=== PATIENT | male | born 1985 | race Caucasian/White ===

== ENCOUNTER 2019-02-20 09:19 | Emergency (ER) | payer MEDICAID ==
[2019-02-20 09:30] VITALS: BP 134/87
[2019-02-20] MEDS ORDERED: DOXYCYCLINE 100 MG TABLET PO STA (09:42)
[2019-02-20] MEDS ORDERED: NAPROXEN 250 MG TABLET PO STA (09:42)
[2019-02-20] MEDS ORDERED: HYDROcod/ACETAM 5/325 MG TABLET PO STA (09:42)
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
== END 2019-02-20 09:58 | disposition home or self-care (01) ==
LOC: ED 09:19
DX: M79.661 Pain in right lower leg (principal); M79.89 Other specified soft tissue disorders; F17.200 Nicotine dependence, unspecified, uncomplicated
CPT/HCPCS: 99282; 99284; A9270

== ENCOUNTER 2019-05-28 19:03 | Emergency (ER) | payer MEDICAID ==
[2019-05-28] MEDS ORDERED: IBUPROFEN 800 MG TABLET PO STA (20:53)
[2019-05-28] MEDS ORDERED: DOXYCYCLINE 100 MG TABLET PO STA (20:53)
--- NOTE | 2019-05-28 20:55 | ED Physician Documentation ---
PD HPI LOWER EXT INJURY - Stated complaint Stated Complaint: RT FOOT PX, SWOLLEN MIDDLE TOE, DRAINAGE - Chief complaint Chief Complaint: Wound - History obtained from History obtained from: Patient - History of Present Illness PD HPI LOW EXT INJURY LOCATION: Right (For about 6 months he has had a painful infected lesion on the right second toe. He has had difficulty following up because of homelessness. He denies using any drugs but of note he is very difficult to arouse on initial evaluation.) Review of Systems Constitutional: denies: Fever, Chills GI: denies: Abdominal Pain, Nausea, Vomiting PD PAST MEDICAL HISTORY - Past Medical History Past Medical History: No Cardiovascular: None Respiratory: None Neuro: None Endocrine/Autoimmune: None GI: None : None HEENT: None Psych: None Musculoskeletal: Chronic back pain Derm: None - Past Surgical History Past Surgical History: Yes Ortho: Spine surgery - Present Medications Home Medications: Ambulatory Orders Medication Instructions Recorded Confirmed Doxycycline Hyclate 100 mg PO BID #14 capsule 02/20/19 Hydrocodone/Acetaminophen [[place] 1 each PO Q6H PRN #12 tablet 02/20/19 5-325 Tablet] Naproxen 500 mg PO BID #20 tablet 02/20/19 Doxycycline Hyclate 100 mg PO BID #20 capsule 05/28/19 Ibuprofen [Motrin] 800 mg PO Q8H PRN #30 tablet 05/28/19 - Allergies Allergies/Adverse Reactions: Allergies Allergy/AdvReac Type Severity Reaction Status Date / Time No Known Drug Allergies Allergy Verified 05/28/19 19:18 - Social History Does the pt smoke?: Yes Smoking Status: Current every day smoker Does the pt drink ETOH?: No Does the pt have substance abuse?: Yes Substance Use and Type: Marijuana - Immunizations Immunizations are current?: Yes - POLST Patient has POLST: No PD ED PE NORMAL - Vitals Vital signs reviewed: Yes - General General: Alert and oriented X 3, No acute distress, Other (somnolent) - Extremities Extremities: Other (There is an infected corn on the medial sideOf the right second toe with some tenderness but no obvious cellulitis or limited range) - Neuro Neuro: Alert and oriented X 3, Normal speech Results - Vitals Vitals: Vital Signs - 24 hr 05/28/19 19:19 Temperature 36.3 C L Heart Rate 107 H Respiratory 18 Rate Blood Pressure 125/72 O2 Saturation 98 Oxygen O2 Source Room air Departure - Departure Disposition: Home, Self Care Clinical Impression: Toe infection Condition: Good Record reviewed to determine appropriate education?: Yes Instructions: ED Staph Infec Abx Tx Only Prescriptions: Doxycycline Hyclate 100 mg PO BID #20 capsule Ibuprofen [Motrin] 800 mg PO Q8H PRN #30 tablet PRN Reason: PAIN &/OR FEVER Comments: We are performing a wound culture, the results should be done in 48-72 hours. If antibiotic change is necessary we will call you. Return if worse in the meantime, especially if you develop increased pain, fevers, cannot keep down the medication. Otherwise follow-up with your physician in approximately 2-3 days. 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 One is listed on this form. Call tomorrow for an appointment.
[2019-05-28 21:26] VITALS: BP 145/76
== END 2019-05-28 21:19 | disposition home or self-care (01) ==
LOC: ED 19:03
DX: L08.9 Local infection of the skin and subcutaneous tissue, unspecified (principal); L84 Corns and callosities; F17.200 Nicotine dependence, unspecified, uncomplicated; Z59.0 Homelessness
CPT/HCPCS: 87070; 87077; 87181; 87205; 99283; A9270

== ENCOUNTER 2019-12-13 18:48 | Emergency (ER) | payer MEDICAID ==
--- NOTE | 2019-12-13 20:05 | ED Physician Documentation ---
PD HPI LOWER EXT INJURY - Stated complaint Stated Complaint: LT ANKLE INJ - Chief complaint Chief Complaint: Trauma Ext - History obtained from History obtained from: Patient (He dropped a drill in his left foot and ankle couple of days ago and has moderate persistent pain and difficulty walking. No other injuries. Declines pain medication on initial evaluation.) Review of Systems Constitutional: reports: Reviewed and negative Cardiac: reports: Reviewed and negative Respiratory: reports: Reviewed and negative PD PAST MEDICAL HISTORY - Past Medical History Cardiovascular: None Respiratory: None Neuro: None Endocrine/Autoimmune: None GI: None : None HEENT: None Psych: None Musculoskeletal: Chronic back pain Derm: None - Past Surgical History Past Surgical History: Yes Ortho: Spine surgery - Present Medications Home Medications: Ambulatory Orders Medication Instructions Recorded Confirmed Doxycycline Hyclate 100 mg PO BID #14 capsule 02/20/19 Hydrocodone/Acetaminophen [[place] 1 each PO Q6H PRN #12 tablet 02/20/19 5-325 Tablet] Naproxen 500 mg PO BID #20 tablet 02/20/19 Doxycycline Hyclate 100 mg PO BID #20 capsule 05/28/19 Ibuprofen [Motrin] 800 mg PO Q8H PRN #30 tablet 05/28/19 Cephalexin [Keflex] 500 mg PO Q6H #28 capsule 12/13/19 - Allergies Allergies/Adverse Reactions: Allergies Allergy/AdvReac Type Severity Reaction Status Date / Time No Known Drug Allergies Allergy Verified 12/13/19 19:02 - Social History Does the pt smoke?: Yes Smoking Status: Current every day smoker Does the pt drink ETOH?: No Does the pt have substance abuse?: Yes - Immunizations Immunizations are current?: Yes - POLST Patient has POLST: No PD ED PE NORMAL - Vitals Vital signs reviewed: Yes - General General: Alert and oriented X 3, No acute distress - Extremities Extremities: Other (Left ankle is tender and swollen especially laterally and over the left fifth metatarsal. Normal perfusion.) - Neuro Neuro: Alert and oriented X 3, Normal speech Results - Vitals Vitals: Vital Signs - 24 hr 12/13/19 19:00 Temperature 37.8 C H Heart Rate 88 Respiratory 14 Rate Blood Pressure 148/92 H O2 Saturation 98 Oxygen O2 Source Room air - Rads (name of study) X-rays of the left ankle and left foot Radiology: EMP read contemporaneously (Normal) PD MEDICAL DECISION MAKING - ED course ED course: 34-year-old gentleman dropped a drill on his lateral foot and ankle a couple of days ago and now has redness and swelling there. Actually kind of looks like a cellulitis. X-rays were negative. He declined pain medication. Departure - Departure Disposition: 01 Home, Self Care Clinical Impression: Cellulitis of left foot Contusion of left foot Qualifiers: Encounter type: initial encounter Qualified Code(s): S90.32XA - Contusion of left foot, initial encounter Condition: Good Record reviewed to determine appropriate education?: Yes Instructions: Cellulitis Dc, ED Sprain Foot Prescriptions: Cephalexin [Keflex] 500 mg PO Q6H #28 capsule Comments: Return if you develop a fever, generally worsening. Follow-up with your doctor next week for recheck.
--- NOTE | 2019-12-13 20:40 | XRAY Report ---
Reason: Trauma Procedure Date: 12/13/2019 Accession Number: [id number] / [id number] Procedure: XR - Ankle 3 View LT CPT Code: Final Report FULL RESULT: EXAM: LEFT ANKLE RADIOGRAPHY EXAM DATE: 12/13/2019 07:25 PM. CLINICAL HISTORY: Trauma. Left ankle pain after dropping heavy object on foot yesterday. COMPARISON: None. TECHNIQUE: 3 views. FINDINGS: Bones: Normal. No fractures or bone lesions. Joints: No subluxation. Soft Tissues: Lateral and anterior ankle soft tissue swelling. IMPRESSION: Lateral and anterior ankle soft tissue swelling. No evidence for acute fracture. RADIA
--- NOTE | 2019-12-13 20:43 | XRAY Report ---
Reason: pain foot Procedure Date: 12/13/2019 Accession Number: [id number] / [id number] Procedure: XR - Foot 3 View LT CPT Code: Final Report FULL RESULT: EXAM: LEFT FOOT RADIOGRAPHY EXAM DATE: 12/13/2019 08:34 PM. CLINICAL HISTORY: Pain foot. Left lateral foot pain after dropping heavy object on foot yesterday. COMPARISON: None. TECHNIQUE: 3 views. FINDINGS: Bones: No evidence for acute fracture. Bone island seen at the fourth metatarsal neck. Joints: No subluxation. Soft Tissues: Large dorsal foot soft tissue swelling. IMPRESSION: Large dorsal foot soft tissue swelling. No evidence for acute fracture. RADIA
[2019-12-13] MEDS ORDERED: CEPHALEXIN 250 MG Prepack 8 CAP BOTTLE PO STA (21:05)
[2019-12-13 21:28] VITALS: BP 145/94
== END 2019-12-13 21:28 | disposition home or self-care (01) ==
LOC: ED 18:48
DX: L03.116 Cellulitis of left lower limb (principal); S90.32XA Contusion of left foot, initial encounter; W20.8XXA Other cause of strike by thrown, projected or falling object, initial encounter; F17.200 Nicotine dependence, unspecified, uncomplicated
CPT/HCPCS: 99283

== ENCOUNTER 2020-05-14 14:50 | Emergency (ER) | payer MEDICAID, OTHER ==
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
[2020-05-14] MEDS ORDERED: oxyCODONE 5 MG TABLET PO STA ×2 (15:53→16:45)
[2020-05-14] MEDS ORDERED: KETOROLAC 30 MG/ML VIAL IM STA (15:53)
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
[2020-05-14 17:26] VITALS: BP 118/65
== END 2020-05-14 17:29 | disposition home or self-care (01) ==
LOC: ED 14:50
DX: S06.0X1A Concussion with loss of consciousness of 30 minutes or less, initial encounter (principal); S20.219A Contusion of unspecified front wall of thorax, initial encounter; S00.83XA Contusion of other part of head, initial encounter; Y04.2XXA Assault by strike against or bumped into by another person, initial encounter; Y93.89 Activity, other specified; Y92.149 Unspecified place in prison as the place of occurrence of the external cause; F17.200 Nicotine dependence, unspecified, uncomplicated
CPT/HCPCS: 70450; 71250; 96372; 99284; A9270

== ENCOUNTER 2021-07-02 12:47 | Inpatient (IN) | payer MEDICAID, OTHER ==
[2021-07-02] MEDS ORDERED: VANCOMYCIN INJ 1.5 GM in SODIUM CHLORIDE 0.9% 500 ML IV STA (13:20)
[2021-07-02] MEDS ORDERED: CEFEPIME 2 GM in SODIUM CHLORIDE 0.9% MINIBAG 100 ML IV STA (13:21)
[2021-07-02] MEDS ORDERED: HYDROmorphone 1 MG/ML CARPUJECT IVP STA ×2 (13:40→17:13)
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
[2021-07-02] MEDS ORDERED: HYDROmorphone 1 MG/ML CARPUJECT IM STA (13:49)
[2021-07-02 15:20] LABS: BASOPHILS % (AUTO) 0.3 %; EOSINOPHILS % (AUTO) 0.3 %; HCT - HEMATOCRIT 38.5 % (42.0-52.0); HGB - HEMOGLOBIN 13.4 g/dL (14.0-18.0); LYMPHOCYTES % (AUTO) 5.3 %; MEAN CORPUSCULAR HEMOGLOBIN 29.8 pg (27.0-31.0); MEAN CORPUSCULAR HGB CONC 34.8 g/dL (32.0-36.0); MEAN CORPUSCULAR VOLUME 85.7 fL (80.0-94.0); MEAN PLATELET VOLUME 8.2 fL (7.4-11.4); MONOCYTES % (AUTO) 11.6 %; NEUTROPHILS % (AUTO) 81.9 %; PLT - PLATELET COUNT 196 10^3/uL (130-450); RED BLOOD COUNT 4.49 10^6/uL (4.70-6.10); RED CELL DISTRIBUTION WIDTH 12.4 % (12.0-15.0); WHITE BLOOD COUNT 18.8 x10^3/uL (4.8-10.8)
[2021-07-02 15:28] LABS: ABNORMAL LYMPHS % (MANUAL) 0 %
--- NOTE | 2021-07-02 15:51 | XRAY Report ---
PROCEDURE: Chest for Line Placement INDICATIONS: central line R IJ TECHNIQUE: One view of the chest was acquired. COMPARISON: Reference is made to the chest CT dated May 14, 2020 FINDINGS: FINDINGS: SUPPORT DEVICES: A right IJ central venous catheter is seen with tip overlying the cavoatrial region. LUNGS/PLEURA: No focal consolidation, pleural effusion or space-occupying pneumothorax. MEDIASTINUM: The cardiomediastinal silhouette is within normal limits. BONES/SOFT TISSUES: No acute abnormality. IMPRESSION: 1.No acute cardiopulmonary abnormality. Reviewed by: Ron Carlson MD on 07/02/2021 3:50 PM PST Approved by: Ron Carlson MD on 07/02/2021 3:50 PM PST Station ID: [id number]
[2021-07-02 15:53] LABS: BAND NEUTROPHILS % (MANUAL) 2 %; DIFFERENTIAL COMMENT MANUAL DIFFERENTIAL; LYMPHOCYTES # (MANUAL) 0.4 10^3/uL (1.5-3.5); LYMPHOCYTES % (MANUAL) 2 %; METAMYELOCYTES % (MANUAL) 1 %; MONOCYTES # (MANUAL) 2.1 10^3/uL (0.0-1.0); NEUTROPHILS # (MANUAL) 16.2 10^3/uL (1.5-6.6); PLATELET ESTIMATE, MANUAL NORMAL (130-450,000) (NORMAL); PLATELET MORPHOLOGY NORMAL APPEARANCE (NORMAL); RBC MORPHOLOGY (MULTIPLE) NORMAL APPEARANCE (NORMAL)
[2021-07-02 16:00] LABS: ALBUMIN 3.4 g/dL (3.2-5.5); ALBUMIN/GLOBULIN RATIO 0.9 (1.0-2.2); CALCIUM 8.4 mg/dL (8.5-10.3); CREATININE 0.7 mg/dL (0.6-1.2); POTASSIUM 3.9 mmol/L (3.5-5.0); TOTAL PROTEIN 7.4 g/dL (6.7-8.2)
[2021-07-02] MEDS ORDERED: SODIUM CHLORIDE 0.9% 1,000 ML IV STA (16:07)
[2021-07-02] MEDS ORDERED: IOVERSOL 320 100 ML VIAL IVP ONE ×2 (16:14→16:44)
--- NOTE | 2021-07-02 17:00 | CT Report ---
PROCEDURE: UPPER EXTREMITY W - LT INDICATIONS: ? nec fasc TECHNIQUE: After the administration of intravenous contrast, 3-mm axial sections acquired from the left upper ex tremity, with coronal and sagittal reformats. COMPARISON: None. FINDINGS: Image quality: Excellent. Bones: No acute, displaced fracture. No cortical destruction to suggest osteomyelitis. Soft tissues: Reticulated and confluent soft tissue density seen in the subcutaneous fat, compatible with edema/cellulitis. No fascial gas is appreciated to suggest necrotizing fasciitis. No well-forme d fluid collection is appreciated to suggest an abscess. Prominence of the thenar muscles with surrounding infiltrative change, which is nonspecific but may r eflect myositis. Impression: 1. Myositis of the thenar muscles. 2. Diffuse soft tissue edema of the left upper extremity subcutaneous fat, most prominent in the then ar region, compatible with edema/cellulitis. Myositis may be better evaluated with magnetic resonance imaging with field of view limited to the hand. Reviewed by: Ron Carlosn MD on 07/02/2021 4:59 PM PST Approved by: Ron Carlson MD on 07/02/2021 4:59 PM PST Station ID: [id number]
[2021-07-02 17:13] LABS: BILIRUBIN,URINE NEGATIVE (NEGATIVE); GLUCOSE, URINE (UA) NEGATIVE (NEGATIVE); KETONES,URINE (UA) NEGATIVE (NEGATIVE); LEUKOCYTE ESTERASE, URINE NEGATIVE (NEGATIVE); NITRITE,URINE NEGATIVE (NEGATIVE); OCCULT BLOOD,URINE MODERATE (NEGATIVE); PH,URINE 5.5 PH (5.0-7.5); PROTEIN,URINE 30 mg/dL (NEGATIVE); UROBILINOGEN,URINE 0.2 (NORMAL) E.U./dL (NORMAL)
[2021-07-02] MEDS ORDERED: SODIUM CHLORIDE 0.9% IV STA (17:13)
[2021-07-02 17:16] LABS: CLARITY,URINE HAZY (CLEAR)
[2021-07-02 17:28] LABS: BACTERIA,URINE None Seen /HPF (None Seen); SQUAMOUS EPITHELIAL CELL,UR NONE SEEN (<= Few); WBC,URINE 0-3 /HPF (0-3)
[2021-07-02] MEDS ORDERED: ACETAMINOPHEN 325 MG TABLET PO PRN (17:38)
[2021-07-02] MEDS ORDERED: SODIUM CHLORIDE FLUSH 0.9% 10 ML SYRINGE IVP PRN (17:38)
[2021-07-02] MEDS ORDERED: MORPHINE 2 MG/ML CARPUJECT IVP PRN (17:38)
[2021-07-02] MEDS ORDERED: oxyCODONE 5 MG TABLET PO PRN (17:38)
[2021-07-02] MEDS ORDERED: ONDANSETRON 4 MG/2 ML VIAL IVP PRN (17:38)
[2021-07-02 17:55] LABS: MUDS CUTOFF CONCENTRATIONS CUTOFF CONC BELOW:
[2021-07-02 17:57] LABS: B. PARAPERTUSSIS- RESP PCR PAN NOT DETECTED; B. PERTUSSIS- RESP PCR PANEL NOT DETECTED; C. PNEUMONIAE- RESP PCR PANEL NOT DETECTED; CORONAVIRUS 229E-RESP PCR NOT DETECTED; CORONAVIRUS HKU1-RESP PCR NOT DETECTED; CORONAVIRUS NL63-RESP PCR NOT DETECTED; CORONAVIRUS OC43-RESP PCR NOT DETECTED; HUMAN METAPNEUMOVIRUS NOT DETECTED; INFLUENZA A- RESP PCR PANEL NOT DETECTED; INFLUENZA B - RESP PCR PANEL NOT DETECTED; M. PNEUMONIAE- RESP PCR PANEL NOT DETECTED; PARAINFLUENZA VIRUS 1 NOT DETECTED; PARAINFLUENZA VIRUS 2 NOT DETECTED; PARAINFLUENZA VIRUS 3 NOT DETECTED; PARAINFLUENZA VIRUS 4 NOT DETECTED; RHINOVIRUS/ENTEROVIRUS NOT DETECTED; RSV- RESP PCR PANEL NOT DETECTED; SARS-CoV-2 -RESP PCR PANEL NOT DETECTED
[2021-07-02 18:07] LABS: AMPHETAMINE SCREEN,URINE POSITIVE (NEGATIVE); BARBITURATE SCREEN,UR NEGATIVE (NEGATIVE); BENZODIAZEPINES SCREEN, URINE NEGATIVE (NEGATIVE); COCAINE SCREEN URINE NEGATIVE (NEGATIVE); METHADONE SCREEN, URINE NEGATIVE (NEGATIVE); METHAMPHETAMINES SCREEN, URINE POSITIVE (NEGATIVE); OPIATE SCREEN, URINE POSITIVE (NEGATIVE); OXYCODONE SCREEN, URINE NEGATIVE (NEGATIVE); PROPOXYPHENE SCREEN, URINE NEGATIVE (NEGATIVE); THC CANNABINOID SCREEN, URINE POSITIVE (NEGATIVE); TRICYCLIC ANTIDEPRESSANT,URINE NEGATIVE (NEGATIVE)
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
[2021-07-02] MEDS: SODIUM CHLORIDE 0.9% 1,000 ML IV SCH (18:27)
[2021-07-02] MEDS: HYDROmorphone 1 MG/ML CARPUJECT IVP PRN ×2 (19:09→21:40)
[2021-07-02] MEDS: CEFEPIME 2 GM in SODIUM CHLORIDE 0.9% MINIBAG 100 ML IV SCH (21:24)
[2021-07-02] MEDS: VANCOMYCIN INJ 1 GM, VANCOMYCIN INJ 250 MG in SODIUM CHLORIDE 0.9% 250 ML IV SCH (23:59)
[2021-07-02] MEDS: SODIUM CHLORIDE FLUSH 0.9% 10 ML SYRINGE IVP SCH (23:59)
[2021-07-03] MEDS: HYDROmorphone 1 MG/ML CARPUJECT IVP PRN ×6 (02:08→17:14)
[2021-07-03] MEDS: SODIUM CHLORIDE 0.9% 1,000 ML IV SCH (06:20)
[2021-07-03 06:35] LABS: BASOPHILS % (AUTO) 0.2 %; HCT - HEMATOCRIT 34.9 % (42.0-52.0); LYMPHOCYTES # (AUTO) 1.4 10^3/uL (1.5-3.5); LYMPHOCYTES % (AUTO) 9.4 %; MEAN CORPUSCULAR HEMOGLOBIN 29.8 pg (27.0-31.0); MEAN CORPUSCULAR HGB CONC 34.4 g/dL (32.0-36.0); MEAN CORPUSCULAR VOLUME 86.6 fL (80.0-94.0); MEAN PLATELET VOLUME 8.3 fL (7.4-11.4); MONOCYTES # (AUTO) 1.7 10^3/uL (0.0-1.0); MONOCYTES % (AUTO) 11.4 %; NEUTROPHILS # (AUTO) 11.3 10^3/uL (1.5-6.6); NEUTROPHILS % (AUTO) 78.5 %; PLT - PLATELET COUNT 171 10^3/uL (130-450); RED BLOOD COUNT 4.03 10^6/uL (4.70-6.10); RED CELL DISTRIBUTION WIDTH 12.4 % (12.0-15.0); WHITE BLOOD COUNT 14.4 x10^3/uL (4.8-10.8)
[2021-07-03 07:07] LABS: CALCIUM 7.6 mg/dL (8.5-10.3); CREATININE 0.6 mg/dL (0.6-1.2); POTASSIUM 3.8 mmol/L (3.5-5.0)
[2021-07-03 07:13] LABS: DIFFERENTIAL COMMENT MANUAL=AUTO DIFF
[2021-07-03] MEDS: VANCOMYCIN INJ 1 GM, VANCOMYCIN INJ 250 MG in SODIUM CHLORIDE 0.9% 250 ML IV SCH (07:55)
[2021-07-03] MEDS ORDERED: ENOXAPARIN 40 MG/0.4 ML SYRINGE SUBQ SCH (09:00)
--- NOTE | 2021-07-03 09:07 | PROVIDER PROGRESS NOTE ---
Subjective - Prog Note Date Prog Note Date: 07/03/21 - Subjective Pt reports feeling: Worse Subjective: Reports increased pain in his hand and arm, feels his hand has increased swelling and pain. There is now drainage noted near the volar aspect of the th umb. Afebrile. Denies n/v. Objective - Vital Signs/Intake & Output Reviewed Vital Signs: Yes Vital Signs: Vital Signs x48h Temp Pulse Resp BP Pulse Ox 07/03/21 04:37 37.1 C 107 H 18 141/85 H 97 Intake & Output: Intake & Output 06/30/21 07/01/21 07/02/21 07/03/21 23:59 23:59 23:59 23:59 Intake Total 3795.59 2345 Output Total 900 Balance 3795.59 1445 - Objective General Appearance: positive: No acute distress, Alert Eyes Bilateral: positive: Normal inspection, PERRL ENT: positive: ENT inspection nml, No signs of dehydration Neck: positive: Nml inspection Respiratory: positive: Chest non-tender, No respiratory distress, Breath sounds nml Cardiovascular: positive: Regular rate & rhythm, No murmur, No gallop Peripheral Pulses: 2+ Radial (R), 2+ Radial (L) Abdomen: positive: Non-tender, No organomegaly, Nml bowel sounds, No distention Skin: positive: Other (Left hand swelling with purple discoloration and erythema extending over the entire hand; along the lateral thumb the skin is tight and w colby and there is serous drainage seeping from the area) Extremities: positive: No pedal edema, Other (left hand swelling extends to just below the elbow, able to passively bend the thumb; skin is tight but compartments are compressible) Neurologic/Psychiatric: positive: Oriented x3, Sensation nml, Mood/affect nml - Lab Results Fish Bones: 07/03/21 06:23 07/03/21 06:23 Other Labs: Lab Results x24hrs 07/03/21 07/03/21 07/02/21 Range/Units 06:23 06:23 17:04 WBC 14.4 H (4.8-10.8) x10^3/uL RBC 4.03 L (4.70-6.10) 10^6/uL Hgb 12.0 L (14.0-18.0) g/dL Hct 34.9 L (42.0-52.0) % MCV 86.6 (80.0-94.0) fL MCH 29.8 (27.0-31.0) pg MCHC 34.4 (32.0-36.0) g/dL RDW 12.4 (12.0-15.0) % Plt Count 171 (130-450) 10^3/uL MPV 8.3 (7.4-11.4) fL Neut # (Auto) 11.3 H Lymph # (Auto) 1.4 L Cherry # (Auto) 1.7 H Eos # (Auto) 0.0 Baso # (Auto) 0.0 Absolute Nucleated RBC 0.00 Total Counted Band Neuts % (Manual) Not Reportable (0 - 10) % Abnorm Lymph % (Manual) Not Reportable % Metamyelocytes % ( - 0) % Nucleated RBC % 0.0 Neutrophils # (Manual) Not Reportable (1.5-6.6) 10^3/uL Lymphocytes # (Manual) Not Reportable (1.5-3.5) 10^3/uL Monocytes # (Manual) Not Reportable (0.0-1.0) 10^3/uL Eosinophils # (Manual) Not Reportable (0-0.7) 10^3/uL Basophils # (Manual) Not Reportable (0-0.1) 10^3/uL Differential Comment MANUAL=AUTO DIFF Platelet Estimate (NORMAL) Platelet Morphology (NORMAL) RBC Morph Micro Appear (NORMAL) Sodium 127 L (135-145) mmol/L Potassium 3.8 (3.5-5.0) mmol/L Chloride 94 L (101-111) mmol/L Carbon Dioxide 25 (21-32) mmol/L Anion Gap 8.0 (6-13) BUN 6 (6-20) mg/dL Creatinine 0.6 (0.6-1.2) mg/dL Estimated GFR (MDRD) 151 (>89) Glucose 121 H (70-100) mg/dL Lactic Acid (0.5-2.2) mmol/L Calcium 7.6 L (8.5-10.3) mg/dL Total Bilirubin (0.2-1.0) mg/dL AST (10-42) IU/L ALT (10-60) IU/L Alkaline Phosphatase (42-121) IU/L C-Reactive Protein 23.0 H (0-1.0) mg/dL Total Protein (6.7-8.2) g/dL Albumin (3.2-5.5) g/dL Globulin (2.1-4.2) g/dL Albumin/Globulin Ratio (1.0-2.2) Urine Color Urine Clarity (CLEAR) Urine pH (5.0-7.5) PH Ur Specific [place] (1.002-1.030) Urine Protein (NEGATIVE) mg/dL Urine Glucose (UA) (NEGATIVE) mg/dL Urine Ketones (NEGATIVE) mg/dL Urine Occult Blood (NEGATIVE) Urine Nitrite (NEGATIVE) Urine Bilirubin (NEGATIVE) Urine Urobilinogen (NORMAL) E.U./dL Ur Leukocyte Esterase (NEGATIVE) Urine RBC (0-5) /HPF Urine WBC (0-3) /HPF Ur Squamous Epith Cells (<= Few) Urine Bacteria (None Seen) /HPF Urine Culture Comments Nasal Adenovirus (PCR) Nasal B. parapertussis DNA (PCR) Nasal Coronavir 229E PCR Nasal Coronavir HKU1 PCR Nasal Coronavir NL63 PCR Nasal Coronavir OC43 PCR Nasal Enterovir/Rhinovir PCR Nasal Influenza B PCR Nasal Influenza A PCR Nasal Parainfluen 1 PCR Nasal Parainfluen 2 PCR Nasal Parainfluen 3 PCR Nasal Parainfluen 4 PCR Nasal RSV (PCR) Nasal B.pertussis DNA PCR Nasal C.pneumoniae (PCR) Maurisio Human Metapneumo PCR Nasal M.pneumoniae (PCR) Nasal SARS-CoV-2 (PCR) Urine Opiates Screen POSITIVE H (NEGATIVE) Ur Oxycodone Screen NEGATIVE (NEGATIVE) Urine Methadone Screen NEGATIVE (NEGATIVE) Ur Propoxyphene Screen NEGATIVE (NEGATIVE) Ur Barbiturates Screen NEGATIVE (NEGATIVE) Ur Tricyclics Screen NEGATIVE (NEGATIVE) Ur Phencyclidine Scrn NEGATIVE (NEGATIVE) Ur Amphetamine Screen POSITIVE H (NEGATIVE) U Methamphetamines Scrn POSITIVE H (NEGATIVE) U Benzodiazepines Scrn NEGATIVE (NEGATIVE) Urine Cocaine Screen NEGATIVE (NEGATIVE) U Cannabinoids Screen POSITIVE H (NEGATIVE) 07/02/21 07/02/21 07/02/21 Range/Units 17:04 17:04 15:05 WBC (4.8-10.8) x10^3/uL RBC (4.70-6.10) 10^6/uL Hgb (14.0-18.0) g/dL Hct (42.0-52.0) % MCV (80.0-94.0) fL MCH (27.0-31.0) pg MCHC (32.0-36.0) g/dL RDW (12.0-15.0) % Plt Count (130-450) 10^3/uL MPV (7.4-11.4) fL Neut # (Auto) Lymph # (Auto) Cherry # (Auto) Eos # (Auto) Baso # (Auto) Absolute Nucleated RBC Total Counted Band Neuts % (Manual) (0 - 10) % Abnorm Lymph % (Manual) % Metamyelocytes % ( - 0) % Nucleated RBC % Neutrophils # (Manual) (1.5-6.6) 10^3/uL Lymphocytes # (Manual) (1.5-3.5) 10^3/uL Monocytes # (Manual) (0.0-1.0) 10^3/uL Eosinophils # (Manual) (0-0.7) 10^3/uL Basophils # (Manual) (0-0.1) 10^3/uL Differential Comment Platelet Estimate (NORMAL) Platelet Morphology (NORMAL) RBC Morph Micro Appear (NORMAL) Sodium (135-145) mmol/L Potassium (3.5-5.0) mmol/L Chloride (101-111) mmol/L Carbon Dioxide (21-32) mmol/L Anion Gap (6-13) BUN (6-20) mg/dL Creatinine (0.6-1.2) mg/dL Estimated GFR (MDRD) (>89) Glucose (70-100) mg/dL Lactic Acid (0.5-2.2) mmol/L Calcium (8.5-10.3) mg/dL Total Bilirubin (0.2-1.0) mg/dL AST (10-42) IU/L ALT (10-60) IU/L Alkaline Phosphatase (42-121) IU/L C-Reactive Protein 25.7 H (0-1.0) mg/dL Total Protein (6.7-8.2) g/dL Albumin (3.2-5.5) g/dL Globulin (2.1-4.2) g/dL Albumin/Globulin Ratio (1.0-2.2) Urine Color DARK YELLOW Urine Clarity HAZY (CLEAR) Urine pH 5.5 (5.0-7.5) PH Ur Specific [place] 1.025 (1.002-1.030) Urine Protein 30 H (NEGATIVE) mg/dL Urine Glucose (UA) NEGATIVE (NEGATIVE) mg/dL Urine Ketones NEGATIVE (NEGATIVE) mg/dL Urine Occult Blood MODERATE H (NEGATIVE) Urine Nitrite NEGATIVE (NEGATIVE) Urine Bilirubin NEGATIVE (NEGATIVE) Urine Urobilinogen 0.2 (NORMAL) (NORMAL) E.U./dL Ur Leukocyte Esterase NEGATIVE (NEGATIVE) Urine RBC 6-10 H (0-5) /HPF Urine WBC 0-3 (0-3) /HPF Ur Squamous Epith Cells NONE SEEN (<= Few) Urine Bacteria None Seen (None Seen) /HPF Urine Culture Comments NOT INDICATED Nasal Adenovirus (PCR) NOT DETECTED Nasal B. parapertussis DNA (PCR) NOT DETECTED Nasal Coronavir 229E PCR NOT DETECTED Nasal Coronavir HKU1 PCR NOT DETECTED Nasal Coronavir NL63 PCR NOT DETECTED Nasal Coronavir OC43 PCR NOT DETECTED Nasal Enterovir/Rhinovir PCR NOT DETECTED Nasal Influenza B PCR NOT DETECTED Nasal Influenza A PCR NOT DETECTED Nasal Parainfluen 1 PCR NOT DETECTED Nasal Parainfluen 2 PCR NOT DETECTED Nasal Parainfluen 3 PCR NOT DETECTED Nasal Parainfluen 4 PCR NOT DETECTED Nasal RSV (PCR) NOT DETECTED Nasal B.pertussis DNA PCR NOT DETECTED Nasal C.pneumoniae (PCR) NOT DETECTED Maurisio Human Metapneumo PCR NOT DETECTED Nasal M.pneumoniae (PCR) NOT DETECTED Nasal SARS-CoV-2 (PCR) NOT DETECTED Urine Opiates Screen (NEGATIVE) Ur Oxycodone Screen (NEGATIVE) Urine Methadone Screen (NEGATIVE) Ur Propoxyphene Screen (NEGATIVE) Ur Barbiturates Screen (NEGATIVE) Ur Tricyclics Screen (NEGATIVE) Ur Phencyclidine Scrn (NEGATIVE) Ur Amphetamine Screen (NEGATIVE) U Methamphetamines Scrn (NEGATIVE) U Benzodiazepines Scrn (NEGATIVE) Urine Cocaine Screen (NEGATIVE) U Cannabinoids Screen (NEGATIVE) 07/02/21 07/02/21 07/02/21 Range/Units 15:05 15:05 15:05 WBC 18.8 H (4.8-10.8) x10^3/uL RBC 4.49 L (4.70-6.10) 10^6/uL Hgb 13.4 L (14.0-18.0) g/dL Hct 38.5 L (42.0-52.0) % MCV 85.7 (80.0-94.0) fL MCH 29.8 (27.0-31.0) pg MCHC 34.8 (32.0-36.0) g/dL RDW 12.4 (12.0-15.0) % Plt Count 196 (130-450) 10^3/uL MPV 8.2 (7.4-11.4) fL Neut # (Auto) Not Reportable Lymph # (Auto) Not Reportable Cherry # (Auto) Not Reportable Eos # (Auto) Not Reportable Baso # (Auto) Not Reportable Absolute Nucleated RBC Not Reportable Total Counted 100 Band Neuts % (Manual) 2 (0 - 10) % Abnorm Lymph % (Manual) 0 % Metamyelocytes % 1 H ( - 0) % Nucleated RBC % Not Reportable Neutrophils # (Manual) 16.2 H (1.5-6.6) 10^3/uL Lymphocytes # (Manual) 0.4 L (1.5-3.5) 10^3/uL Monocytes # (Manual) 2.1 H (0.0-1.0) 10^3/uL Eosinophils # (Manual) 0.0 (0-0.7) 10^3/uL Basophils # (Manual) 0.0 (0-0.1) 10^3/uL Differential Comment MANUAL DIFFERENTIAL Platelet Estimate NORMAL (130-450,000) (NORMAL) Platelet Morphology NORMAL APPEARANCE (NORMAL) RBC Morph Micro Appear NORMAL APPEARANCE (NORMAL) Sodium 124 L (135-145) mmol/L Potassium 3.9 (3.5-5.0) mmol/L Chloride 88 L (101-111) mmol/L Carbon Dioxide 26 (21-32) mmol/L Anion Gap 10.0 (6-13) BUN 12 (6-20) mg/dL Creatinine 0.7 (0.6-1.2) mg/dL Estimated GFR (MDRD) 126 (>89) Glucose 123 H (70-100) mg/dL Lactic Acid 0.7 (0.5-2.2) mmol/L Calcium 8.4 L (8.5-10.3) mg/dL Total Bilirubin 1.0 (0.2-1.0) mg/dL AST 21 (10-42) IU/L ALT 28 (10-60) IU/L Alkaline Phosphatase 79 (42-121) IU/L C-Reactive Protein (0-1.0) mg/dL Total Protein 7.4 (6.7-8.2) g/dL Albumin 3.4 (3.2-5.5) g/dL Globulin 4.0 (2.1-4.2) g/dL Albumin/Globulin Ratio 0.9 L (1.0-2.2) Urine Color Urine Clarity (CLEAR) Urine pH (5.0-7.5) PH Ur Specific [place] (1.002-1.030) Urine Protein (NEGATIVE) mg/dL Urine Glucose (UA) (NEGATIVE) mg/dL Urine Ketones (NEGATIVE) mg/dL Urine Occult Blood (NEGATIVE) Urine Nitrite (NEGATIVE) Urine Bilirubin (NEGATIVE) Urine Urobilinogen (NORMAL) E.U./dL Ur Leukocyte Esterase (NEGATIVE) Urine RBC (0-5) /HPF Urine WBC (0-3) /HPF Ur Squamous Epith Cells (<= Few) Urine Bacteria (None Seen) /HPF Urine Culture Comments Nasal Adenovirus (PCR) Nasal B. parapertussis DNA (PCR) Nasal Coronavir 229E PCR Nasal Coronavir HKU1 PCR Nasal Coronavir NL63 PCR Nasal Coronavir OC43 PCR Nasal Enterovir/Rhinovir PCR Nasal Influenza B PCR Nasal Influenza A PCR Nasal Parainfluen 1 PCR Nasal Parainfluen 2 PCR Nasal Parainfluen 3 PCR Nasal Parainfluen 4 PCR Nasal RSV (PCR) Nasal B.pertussis DNA PCR Nasal C.pneumoniae (PCR) Maurisio Human Metapneumo PCR Nasal M.pneumoniae (PCR) Nasal SARS-CoV-2 (PCR) Urine Opiates Screen (NEGATIVE) Ur Oxycodone Screen (NEGATIVE) Urine Methadone Screen (NEGATIVE) Ur Propoxyphene Screen (NEGATIVE) Ur Barbiturates Screen (NEGATIVE) Ur Tricyclics Screen (NEGATIVE) Ur Phencyclidine Scrn (NEGATIVE) Ur Amphetamine Screen (NEGATIVE) U Methamphetamines Scrn (NEGATIVE) U Benzodiazepines Scrn (NEGATIVE) Urine Cocaine Screen (NEGATIVE) U Cannabinoids Screen (NEGATIVE) - Diagnostic Imaging Diagnostic Imaging Results: positive: Final report reviewed ABX Reporting Has patient been on IV antibiotics over the past 48 hours?: Yes Sepsis Event Note (H) - Evaluation Possible source of Sepsis: positive: Skin/soft tissue - Sepsis Criteria Sepsis Criteria: Recorded Heart Rate greater than 90 bpm, WBC count greater than 12,000 or less than 4000 Assessment/Plan - Problem List (1) Sepsis Impression: Stable. On admission, WBC 18.8 and CRP 26. Today they are 14.4 and 23. Sodium is also low at 127. He remains tachycardic. His hand is swollen and tight but compressible. There is erythema and purple discoloration along the hand and centralized near the thumb, near his prior IVDU sites. CT yesterday was sug gestive of cellulitis and myositis and did not reveal a fluid collection. However today the region along medial thumb is tight and white and appears to be an evolving abscess which may require debridement. It is weeping/draining muco- purulent fluid. Dr. Spann from [facility] was consulted and believes the Pt would benefit from transition to a higher level of care given the specialized surgical needs he may require near thumb. He may also require multiple debridements. Currently sensation is intact, he is not able to bend his wrist much due to edema but he is able to passively bend the thumb despite the swelling. -Continue antibiotics, start Clindamycin in addition to the Vanco and Cefepime he is currently receiving -Will attempt to transfer to higher level of care for evaluation by a Hand S urgery Team such as at [facility] or [facility] -Elevate for edema management, monitor for change in pain or sensation -Daily CBC Qualifiers: Sepsis type: sepsis due to unspecified organism Sepsis acute organ dysfunction status: without acute organ dysfunction Qualified Code(s): A41.9 - Sepsis, unspecified organism (2) Left arm cellulitis Impression: Likely caused by his IVDU. Antibiotics were continued while we attempt to transfer him to a higher level of care given no improvement over the past 12-24 hours despite antibiotic regimen. Clindamycin was added to the regimen. -Continue Vancomycin and Cefepime -Start Clindamycin -Pain meds PRN (3) IVDU (intravenous drug user) Impression: Reports daily drug injection prior to admission. -Social work consult for resources -Consider HIV and HCV tests and ECHO (4) Hyponatremia Impression: Improving. His Na was 124 yesterday, increased to 127 today. IVF was continued. He is alert and oriented, this is likely related to hypovolemic hyponatremia. -Daily CMP -NS @ 100ml/hr
[2021-07-03] MEDS: SODIUM CHLORIDE FLUSH 0.9% 10 ML SYRINGE IVP SCH ×2 (09:22→16:19)
[2021-07-03] MEDS: CEFEPIME 2 GM in SODIUM CHLORIDE 0.9% MINIBAG 100 ML IV SCH (09:22)
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
[2021-07-03] MEDS ORDERED: NICOTINE 21 MG PATCH TOP SCH (13:09)
[2021-07-03] MEDS ORDERED: CLINDAMYCIN 600 MG/50 ML 50 ML IV SCH (14:00)
--- NOTE | 2021-07-03 14:30 | PHARMACY PROGRESS NOTE ---
- Therapy Status Vancomycin regimen day #: 2 Therapy status: Awaiting steady state Basis for treatment: Empirical Treatment indication: cellulitis of hand Trough goal: 15-20 Concurrent antibiotics: cefepime, clindamycin - UYEN Risk Risk level for Acute Kidney Injury: Moderate Acute Kidney Injury risk factors: IV contrast within 72 hrs, Goal trough >15 - Monitoring and Recommendation Clinical response to treatment: I&O Previous 24 hours 07/01/21 07/02/21 07/03/21 23:59 23:59 23:59 Intake Total 3795.59 3225 Output Total 1675 Balance 3795.59 1550 Lab Results 07/03/21 07/02/21 06:23 15:05 BUN 6 12 Creatinine 0.6 0.7 Estimated GFR (MDRD) 151 126 Monitoring plan: Daily serum creatinine Next trough due prior to maintenance dose #: 5 Next trough due (date/time): 07/04 at [id number] Areas for additional monitoring: IV to PO when appropriate, Therapy de- escalation based on culture results Pharmacy recommendation: Continue current regime
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
[2021-07-03] MEDS ORDERED: VANCOMYCIN INJ 1 GM, VANCOMYCIN INJ 250 MG in SODIUM CHLORIDE 0.9% 250 ML IV SCH (16:00)
[2021-07-03] MEDS ORDERED: KETOROLAC 30 MG/ML VIAL IVP STA (16:00)
[2021-07-03 16:29] VITALS: BP 129/75
== END 2021-07-03 18:16 | disposition short-term general hospital (02) | DRG 872 ==
LOC: ED 12:47 → MS2 17:38
PROVIDERS: ADMIT Nurse Practitioner Gerontology; ATTEND Nurse Practitioner Gerontology
DX: A41.9 Sepsis, unspecified organism (principal); L03.114 Cellulitis of left upper limb; E87.1 Hypo-osmolality and hyponatremia; M60.000 Infective myositis, unspecified right arm; M65.141 Other infective (teno)synovitis, right hand; F19.10 Other psychoactive substance abuse, uncomplicated; E86.0 Dehydration; G89.29 Other chronic pain; M54.9 Dorsalgia, unspecified; F17.200 Nicotine dependence, unspecified, uncomplicated; Z20.822 Contact with and (suspected) exposure to COVID-19; Z91.19 Patient's noncompliance with other medical treatment and regimen
CPT/HCPCS: 0202U; 36415; 36556; 71045; 73201; 80048; 80053; 80306; 81001; 83605; 85025; 86140; 87040; 96365; 96366; 96368; 96372; 96375; 96376; 99284; 99285; A9270; J1170; J1650; J3370; Q9967; 87086

== ENCOUNTER 2021-09-26 09:28 | Emergency (ER) | payer OTHER, MEDICAID ==
[2021-09-26 09:35] VITALS: BP 129/114
[2021-09-26] MEDS ORDERED: KETOROLAC 30 MG/ML VIAL IM STA (09:37)
[2021-09-26] MEDS ORDERED: MUPIROCIN 2% OINT 1 GM TOP STA (09:38)
[2021-09-26] MEDS ORDERED: DOXYCYCLINE 100 MG TABLET PO STA (09:39)
--- NOTE | 2021-09-26 09:39 | ED Physician Documentation ---
PD HPI SKIN - Stated complaint Stated Complaint: FIT FOR CONFINEMENT - History obtained from History obtained from: Patient, Police - History of Present Illness Timing - onset: How many months ago (3) Timing - duration: Months (3 Months of persistent wound at the base of the thumb. He was initially hospitalized end of June with IV antibiotics and was to be transferred to for hand orthopedic evaluation. The patient insisted on transfer by private vehicle and states he never did go to [facility]. Persistent wound/drainage.) Timing - details: Gradual onset, Still present (he has not really been using any meds/topicals for the wound. He is here today for eval prior to going to halfway, and brought by [facility] to have wound evaluated.) Location: LUE (base of thumb and thenar area.) Quality / character: Painful, Discolored (red), Draining. No: Swelling Associated symptoms: No: Fever, Myalgias, N/V/D Contributing factors: Other (IVDU) Similar symptoms before: Other (has had skin sores with IVDU. Currently has small sore dorsum right hand that has been for couple weeks, and slightly improving.) Recently seen: Emergency Dept, Admitted (June 2021 for this when was much worse.) Review of Systems Constitutional: denies: Fever, Chills Nose: denies: Rhinorrhea / runny nose, Congestion Throat: denies: Sore throat Respiratory: denies: Cough GI: denies: Nausea, Vomiting Neurologic: reports: Numbness (some numbness right thumb for past couple months.). denies: Focal weakness Immunocompromised: denies: Immunocompromised PD PAST MEDICAL HISTORY - Past Medical History Cardiovascular: None Respiratory: None Neuro: None Endocrine/Autoimmune: None GI: None : None HEENT: None Psych: None Musculoskeletal: Chronic back pain Derm: None - Past Surgical History Past Surgical History: Yes Ortho: Spine surgery - Present Medications Home Medications: Ambulatory Orders Medication Instructions Recorded Confirmed Doxycycline Hyclate 100 mg PO BID 7 Days #14 cap 09/26/21 HYDROcod/ACETAM 5/325 [[place] 5/325] 1 ea PO Q6H PRN #10 tablet 09/26/21 Mupirocin 2% Oint [Bactroban 2% 1 applic TOP TID #15 gm 09/26/21 Oint] - Allergies Allergies/Adverse Reactions: Allergies Allergy/AdvReac Type Severity Reaction Status Date / Time No Known Drug Allergies Allergy Verified 09/26/21 09:31 - Social History Does the pt smoke?: Yes Smoking Status: Current every day smoker Does the pt drink ETOH?: No Does the pt have substance abuse?: Yes - Immunizations Immunizations are current?: Yes - POLST Patient has POLST: No PD ED PE NORMAL - Vitals Vital signs reviewed: Yes - General General: Alert and oriented X 3, Well developed/nourished, Other (appears in pain from the hand wound. ) - Derm Derm: Normal color, Warm and dry - Extremities Extremities: Other (Base of the thumb and the distal thenar area with ulceration to fatty tissue and mild yellow base. No current discharge from the area. Mild surrounding redness. No fluctuance. He is able to flex the thumb. Describes numbness in the thumb. Dorsum right hand with 1 cm superficial ulcerative lesio) - Neuro Neuro: Alert and oriented X 3, No motor deficit, Normal speech Results - Vitals Vitals: Vital Signs - 24 hr 09/26/21 09:32 Temperature 36.8 C Heart Rate 99 Respiratory 24 Rate Blood Pressure 129/114 H O2 Saturation 100 Oxygen O2 Source Room air PD MEDICAL DECISION MAKING - ED course Complexity details: reviewed old records (Wound appearsIn comparison to the description and pictures from June quite significantly improved which is local ulcerative infection of the skin and subcutaneous soft tissue.), considered differential, d/w patient, d/w product safety consultant (left voice mail with Jose Roberto JIMENEZ, the halfway provider on eval and plan. ) Departure - Departure Disposition: 01 Home, Self Care Clinical Impression: Infected hand Condition: Stable Record reviewed to determine appropriate education?: Yes Instructions: ED Staph Infec Abx Tx Only Follow-Up: JOSE ROBERTO XAVIER ARNP [Physician No Access] - Prescriptions: Mupirocin 2% Oint [Bactroban 2% Oint] 1 applic TOP TID #15 gm Doxycycline Hyclate 100 mg PO BID 7 Days #14 cap HYDROcod/ACETAM 5/325 [[place] 5/325] 1 ea PO Q6H PRN #10 tablet PRN Reason: Pain Comments: wash gently with soap and water gently twice daily and apply mupirocin antibiotic ointment. Dressings over the wounds to keep them clean. Doxycycline antibiotic twice daily for a week for the infection. Naproxen anti-inflammatory twice daily with food. To that add Tylenol or hydrocodone as needed for worse pain. The provider for the halfway will assume further care for this. The nursing staff there can help with dressing changes and wound care as well. Discharge Date/Time: 09/26/21 10:46
[2021-09-26] MEDS ORDERED: oxyCODONE 5 MG TABLET PO STA (10:14)
--- NOTE | 2021-09-26 10:19 | XRAY Report ---
PROCEDURE: Hand 3 View LT INDICATIONS: chronic infection thenar area TECHNIQUE: 3 views of the hand(s) acquired. COMPARISON: Correlation is made with CT 07/02/2021 FINDINGS: Bones: No fractures or dislocations. No suspicious bony lesions. Soft tissues: No suspicious soft tissue calcifications. No vaishnavi soft tissue gas is seen. Generaliz ed soft tissue swelling is seen. IMPRESSION: Soft tissue swelling is seen, without soft tissue gas or vaishnavi bony abnormality. If it would be helpful for clinical management decision making, please consider a dedicated hand MRI (without and with contrast) for further evaluation (assuming that there is no contraindication). Reviewed by: Bradley Olivares MD on 09/26/2021 9:17 AM [facility] Approved by: Bradley Olivares MD on 09/26/2021 9:17 AM [facility] Station ID: [id number]
== END 2021-09-26 10:46 | disposition home or self-care (01) ==
LOC: ED 09:28
DX: Z02.89 Encounter for other administrative examinations (principal); S61.002A Unspecified open wound of left thumb without damage to nail, initial encounter; L08.9 Local infection of the skin and subcutaneous tissue, unspecified; X58.XXXA Exposure to other specified factors, initial encounter; F17.200 Nicotine dependence, unspecified, uncomplicated
CPT/HCPCS: 73130; 96372; 99282; 99283; A9270